=== PATIENT | female | born 1975 ===

== ENCOUNTER 2023-02-15 11:28 | Emergency (ER) | payer OTHER, MEDICAID, SELFPAY ==
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
[2023-02-15 11:52] VITALS: BP 121/80; PULSE 65; RESP 18; TEMP 36.7; O2SAT 98; BMI 25.8
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
[2023-02-15 13:09] VITALS: BP 101/74; PULSE 65; RESP 18; O2SAT 98
== END 2023-02-15 15:34 | disposition home or self-care (01) ==
PROVIDERS: Emergency Provider Emergency Medicine Emergency Medical Services
DX: S29.012A Strain of muscle and tendon of back wall of thorax, initial encounter (principal); M79.10 Myalgia, unspecified site; M54.6 Pain in thoracic spine; M54.50 Low back pain, unspecified; R07.89 Other chest pain; V43.52XA Car driver injured in collision with other type car in traffic accident, initial encounter; Y93.9 Activity, unspecified; Y92.410 Unspecified street and highway as the place of occurrence of the external cause; Y99.9 Unspecified external cause status
CPT/HCPCS: 71045; 72072; 99283; 99284